=== PATIENT | female | born 1995 | race Caucasian/White ===

== ENCOUNTER 2025-05-13 06:58 | Emergency (ER) | payer OTHER ==
[~2025-05-13] VITALS: Ht 167.6 cm; Wt 58.2 kg
[2025-05-13] MEDS ORDERED: PNV1TABL16 PO (07:41)
[2025-05-13] MEDS: BENZONATATE 100 MG CAPSULE PO ONE (08:41)
[2025-05-13] MEDS ORDERED: AMOX875T2 PO (09:20)
[2025-05-13] MEDS ORDERED: BENZ200C70 PO (09:25)
[2025-05-13 09:28] VITALS: BP 130/71; TEMP 97.8; O2SAT 100
== END 2025-05-13 09:53 | disposition home or self-care (01) ==
LOC: M ED 06:58
DX: J01.90 Acute sinusitis, unspecified (principal)